=== PATIENT | female | born 1935 | race Caucasian/White ===

== ENCOUNTER 2019-01-24 20:25 | Inpatient (IN) | payer OTHER ==
[~2019-01-24] VITALS: Ht 165.1 cm; Wt 99.4 kg
[2019-01-24 20:29] VITALS: Ht 165.1 cm; Wt 99.4 kg
--- NOTE | 2019-01-24 20:32 | NUR ---
PT BIB AMBULANCE FROM [facility] FOR C/O OF A SUDDEN ONSET OF CHEST PAIN THAT STARTED APPROX 30MINS AGO. PER MEDICS THEY GAVE 2 0.4MG OF NITRO SL AND 324 MG OF ASPIRIN WITH NO RELIEF OF SYMPTOMS. PT STATES THAT PAIN IS SHARP, NON-RADIATING AND RATES IT A 9/10. PT ALSO REPORT SOB, PT LUNG SOUNDS CLEAR IN ALL FLORES WITH AUSCULTATION. PT IS ON A VOLUNTARY HOLD AT [facility] FOR BEING GRAVELY DISABLED. PT IS A/O X4. RESP ARE EQUAL AND UNLABORED. NO ACUTE DISTRESS NOTED. PT PLACED ON FULL PRODUCT TEST SPECIALIST.
[2019-01-24 21:44] LABS: BASOPHIL % 1.3 % (0-2); PLATELET COUNT 213 x10^3mcL (130-400); RED CELL DISTRIBUTION WIDTH 14.4 % (11.5-14.5)
[2019-01-24 21:49] LABS: CARBON DIOXIDE 25.2 mmol/L (21-32); CHLORIDE SERUM 107 mmol/L (98-107); CREATININE SERUM 1.1 mg/dL (0.6-1.0); GLUCOSE SERUM 89 mg/dL (74-106); POTASSIUM SERUM 4.1 mmol/L (3.5-5.1); SODIUM SERUM 143 mmol/L (136-145)
[2019-01-24 21:54] LABS: ALKALINE PHOSPHATASE 126 U/L (46-116); ALT/SGPT 14 U/L (14-59); AST/SGOT 12 U/L (15-37); BILIRUBIN TOTAL 0.2 mg/dL (0.20-1.00); TOTAL PROTEIN, SERUM 5.7 g/dL (6.4-8.2)
--- NOTE | 2019-01-24 22:19 | NUR ---
CALLED [facility] AND SPOKE TO PAYAL BAEZ WHO STATED THAT PT IS NO NOT A HOLD SHE WAS A VOLUNTARY ADMIT INTO [facility].
--- NOTE | 2019-01-24 22:47 | NUR ---
REPORT GIVEN ELSA RN TO ASSUME CARE OF PT.
[2019-01-24] MEDS ORDERED: PLA75 PO (23:07)
[2019-01-24] MEDS ORDERED: LIPI10 PO (23:07)
[2019-01-24] MEDS ORDERED: ARICEPT5 MG PO (23:07)
[2019-01-24] MEDS ORDERED: NOR5 PO (23:07)
[2019-01-24] MEDS ORDERED: CARVEDILOL3.125 M1 PO (23:08)
[2019-01-24] MEDS ORDERED: ASPIR 8181 MG PO (23:08)
[2019-01-24 23:31] VITALS: BP 141/57
--- NOTE | 2019-01-24 23:34 | NUR ---
RECEIVED PT FROM ED VIA DANII. ORIENTED PT TO ROOM AND SURROUNDINGS. IV NOTED TO PATENT AND INTACT. TELE 3 PLACED ON PT READING SBR. INSTRUCTED PT ON THE USE OF CALL LIGHT FOR ASSISTANCE. ENDORSED PT TO PRIMARY NURSE ELSA
[2019-01-24 23:36] LABS: MAGNESIUM 1.7 mg/dL (1.8-2.4)
[2019-01-24 23:37] LABS: CHOLESTEROL/HDL RATIO 2.5
[2019-01-24 23:45] LABS: FREE T4 1.04 ng/dL (0.76-1.46); FREE THYROXINE INDEX 2.6 ug/dL (1.4-4.5); T4(THYROXINE) 7.1 ug/dL (4.7-13.3)
--- NOTE | 2019-01-25 00:01 | NUR ---
RECIEVED PT FROM VANESSA RN IN NO ACUTE DISTRESS. AOX2. TELE #3, SB. BREATHING E/U. DENIES CP. C/O LINDSEY. IV TO , PATENT. ORIENTED TO ROOM. BED IN LOWEST POSITION, 2 SIDE RAILS UP, CALL LIGHT IN REACH. INSTRUCTED TO CALL FOR ASSISTANCE.
[2019-01-25 00:40] LABS: T3 TOTAL 0.85 ng/mL
--- NOTE | 2019-01-25 01:50 | NUR ---
RESTING IN BED WITH EYES CLOSED. BREATHING E/U. NO ACUTE DISTRESS NOTED. WILL CONTINUE TO MONITOR.
[2019-01-25 05:15] VITALS: BP 139/53
[2019-01-25 06:47] LABS: BASOPHIL % 1.2 % (0-2); PLATELET COUNT 208 x10^3mcL (130-400); RED CELL DISTRIBUTION WIDTH 14.5 % (11.5-14.5)
--- NOTE | 2019-01-25 06:47 | NUR ---
NO C/O CP OVERNIGHT. NO ACUTE CHANGES. WILL ENDORSE TO ONCOMING RN.
--- NOTE | 2019-01-25 07:01 | NUR ---
REPORT TAKEN FROM PROFESSOR OF LITERATURE NURSE AT THE BEDSIDE, PT RESTING BUT WOKE FOR REPORT. DENIED HEADACHE, BUT DID REPORT MILD CHEST PAIN. DENIED SOB, DIZZINESS, OR NAUSEA, ON TELE # 3 SR AT THIS TIME, WILL CONTINUE TO MONITOR.
[2019-01-25 07:06] LABS: CALCIUM 7.9 mg/dL (8.5-10.1); CARBON DIOXIDE 26.7 mmol/L (21-32); CHLORIDE SERUM 107 mmol/L (98-107); CREATININE SERUM 1.1 mg/dL (0.6-1.0); GLUCOSE SERUM 82 mg/dL (74-106); MAGNESIUM 1.8 mg/dL (1.8-2.4); PHOSPHOROUS 3.4 mg/dL (2.5-4.9); POTASSIUM SERUM 4.5 mmol/L (3.5-5.1); SODIUM SERUM 144 mmol/L (136-145)
--- NOTE | 2019-01-25 07:15 | NUR ---
CANCELLATION REQUESTED FOR ECHOCARDIOGRAM
--- NOTE | 2019-01-25 12:13 | NUR ---
PT REPORTS CHEST PAIN AT THIS TIME THAT RADIATES TO HER BACK, WELL NUMBNESS IN HER FINGERS. VITALS ASSESSED BP 129/49 (86), HR 55, O2 SAT 98 ON ROOM AIR. CARDIAC ECHO IN PROGRESS AT THIS.
--- NOTE | 2019-01-25 12:17 | NUR ---
I SPOKE TO DR. DALTON WHO REQUESTED AN EKG BE COMPLETED AT THIS TIME.
--- NOTE | 2019-01-25 12:24 | NUR ---
EKG ORDERED AND I SPOKE TO RT WHO CONFIMED THEY RECEVIED THE ORDER AND WILL COME TO COMPLETE. PT AWAKE ALERT AND ORIENTED, ABLE TO MAKE NEEDS KNOWN. WILL CONTINUE TO MONITOR.
--- NOTE | 2019-01-25 12:32 | NUR ---
VITALS RE-ASSESED AT THIS TIME, BP 128/59 (82), HR 54, O2 SAT 98 ON ROOM AIR. PT REPORTS NO CHANGE IN PAIN, STILL LOCATED IN LEFT CHEST AND RADIATES TO BACK, EKG PENDING, NO NEW ORDERS FROM DR. DALTON AT THIS TIME, WILL CONTINUE TO MONITOR.
--- NOTE | 2019-01-25 12:50 | NUR ---
EKG COMPLETED, PROVIDER PAGED.
[2019-01-25 13:12] VITALS: BP 147/72
[2019-01-25 16:59] VITALS: BP 131/52
[2019-01-25 17:52] LABS: microscopic required? NO
[2019-01-25 18:01] LABS: UA SPECIFIC GRAVITY <=1.005 (1.005-1.035); urine erythrocyte NEGATIVE (NEGATIVE)
[2019-01-25 18:13] LABS: AMPHETAMINE QUAL UR NONE DETECTED (See below)
--- NOTE | 2019-01-25 18:24 | NUR ---
PT TOLERATED TREATMENT WELL DURING THE SHIFT, REPORTS MILD CHEST DISCOMFORT AT THIS TIME, BUT DENIED ACUTE PAIN. ABLE TO REST AT THIS TIME. WILL REPORT TO MEDICAL OFFICE TECHNOLOGIST NURSE AND ENDORSE CARE CARE.
--- NOTE | 2019-01-25 19:10 | NUR ---
REPORT GIVEN TO GROUP ROOMS COORDINATOR NURSE, CARE ENDORSED
[2019-01-25 19:20] VITALS: BP 137/56
--- NOTE | 2019-01-25 20:21 | NUR ---
RECEIVED PT SITTING ON THE EDGE OF THE BED AAOX3 , DENY CHEST PAIN AT THE MOMENT , ON TELE NUMBER 3 THAT SHOWS NSR HR 78 . LUNG SOUNDS CTA , ABD SOFT BS ACTIVE , PIV INTACT INFUSING WELL . CALL LIGHT WITHIN PT'S REACH , WILL CON'T TO MONITOR PT CLOSELY.
--- NOTE | 2019-01-26 04:08 | NUR ---
I HAVE REVIEWED THE DATA COLLECTION BY LEAD [employer]ESS[employer] (NAME):LIU JOSEPH ENTERED ON (DATE/TIME): I CONCUR WITH THE DATA AND ANY EXCEPTIONS OR COMMENTS ARE LISTED BELOW:
[2019-01-26 04:44] VITALS: BP 140/59
--- NOTE | 2019-01-26 04:58 | NUR ---
PT;S IN BED WITH EYES CLOSED , TELE NSR . PIV INTACT INFUSING WELL .
--- NOTE | 2019-01-26 06:27 | NUR ---
NO CHANGES OF CONDITION NOTED, ALL DUE MEDS GIVEN NO REACTION NOTED, PIV INTACT INFUSING WELL , PT'S IN BED DENY CHEST PAIN AT THE MOMENT , TELE NSR
[2019-01-26 07:01] LABS: BASOPHIL % 1.4 % (0-2); PLATELET COUNT 205 x10^3mcL (130-400); RED CELL DISTRIBUTION WIDTH 14.4 % (11.5-14.5)
[2019-01-26 07:13] LABS: CALCIUM 8.2 mg/dL (8.5-10.1); CARBON DIOXIDE 27.2 mmol/L (21-32); CHLORIDE SERUM 109 mmol/L (98-107); GLUCOSE SERUM 84 mg/dL (74-106); POTASSIUM SERUM 4.1 mmol/L (3.5-5.1); SODIUM SERUM 146 mmol/L (136-145)
--- NOTE | 2019-01-26 07:27 | NUR ---
ASSUMED CARE OF PATIENT. ALERT AND AWAKE THIS MORNING. A&OX2 TO PERSON AND PLACE. NO COMPLAINTS OF PAIN OR DISCOMFORT. NO APPARENT DISTRESS NOTED. IV TO LEFT HAND PATENT AND INFUSING NS AT 70ML/HR. WILL CONTINUE TO MONITOR.
[2019-01-26 08:43] VITALS: BP 108/51
--- NOTE | 2019-01-26 09:15 | NUR ---
PATIENT RESTING IN BED WITH NO COMPLAINTS OF PAIN OR DISCOMFORT. NO APPARENT DISTRESS NOTED. ENDORSING BM THIS MORNING.
--- NOTE | 2019-01-26 11:28 | NUR ---
PATIENT SEEN RESTING IN BED WITH NO COMPLAINTS OF PAIN OR DISCOMFORT. NO APPARENT DISTRESS NOTED. NO NEW ISSUES.
[2019-01-26 11:46] VITALS: BP 129/39
--- NOTE | 2019-01-26 14:27 | NUR ---
PATIENT SEEN IN ROOM WITH NO COMPLAINTS OF PAIN OR DISCOMFORT. NO APPARENT DISTRESS NOTED. NO NEW ISSUES.
--- NOTE | 2019-01-26 14:46 | NUR ---
CONTACTED SISTER KORY FOR POSSIBLE PICKUP FOR DISCHARGE. SISTER STATES SHE IS NOT COMFORTABLE WITH TAKING SISTER BACK, STATES WHENEVER SISTER COMES BACK HOME SHE LEAVES HER PLACE STATING SHE DOES NOT WANT TO BE THERE. PATIENT GOES MISSING FOR THESE PERIODS OF TIME AND SISTER IS UNAWARE OF WHAT SHE HAS BEEN DOING FOR THE PAST 2 WEEKS. OLMAN FINK NOTIFIED.
--- NOTE | 2019-01-26 15:00 | NUR ---
PATIENT AN UNRELIABLE HISTORIAN. UNABLE TO NAME CURRENT HOSPITAL, UNABLE TO RECALL PRIOR VOLUNTAROY ADMISSION TO [facility], UNABLE TO RECALL WHERE SHE WAS STAYING PRIOR TO [facility]. WHEN ASKED ABOUT HOME SITUATION WITH SISTER, STATES PATIENT WAS THE ONE TAKING CARE OF THE SISTER AND DID NOT WANT TO LIVE THERE. PATIENT ALSO STATES SHE CAME FROM A PLACE WITH LOTS OF PEOPLE HER AGE, UNABLE TO RECALL FACILITY NAME.
--- NOTE | 2019-01-26 15:32 | NUR ---
CALL FROM [facility] AT [facility], STATES THEY HAVE PATIENTS BELONGINGS AND WILL SEND IT OVER TO THE FACILITY. ALSO STATES THE ONLY INFORMATION THEY HAVE REGARDING THE PATIENT IS THE SISTER'S PHONE NUMBER.
--- NOTE | 2019-01-26 16:38 | NUR ---
PATIENTS BELONGINGS RETURNED FROM [facility]
--- NOTE | 2019-01-26 16:40 | NUR ---
UPDATED [facility] PE[facility]ERO OF PATIENT STATUS FOR DISCHARGE
[2019-01-26 16:56] VITALS: BP 141/100
--- NOTE | 2019-01-26 17:45 | NUR ---
REPORT GIVEN TO [facility] ADMISSIONS WITH APPROVAL FROM [facility] FROM [facility]. [facility] WAITING FOR [phone] IN FAX.
--- NOTE | 2019-01-26 18:57 | NUR ---
PATIENT SEEN IN BED WITH NO COMPLAINTS OF PAIN OR DISCOMFORT. NO APPARENT DISTRESS NOTED. IV TO LEFT HAND PATENT AND INFUSING NS AT 70ML/HR. WILL ENDORSE CARE TO ONCOMING RN.
--- NOTE | 2019-01-26 19:30 | NUR ---
RECIEVED PATIENT AT START OF SHIFT A/O X3. ON TELE 3 NSR 68. PATIENT REPORTING 8/10 CHEST PAIN RADIATING TO LEFT SHOULDER. WILL NOTIFY MD. NO EDEMA NOTED. NO SOB ON RA. IV TO LH INFUSING WITHOUT ERYTHEMA OR INFILTRATION. BED LOCKED AND IN LOWEST POSITION. CALL LIGHT WITHIN REACH.
--- NOTE | 2019-01-26 20:00 | NUR ---
DR. BATRES NOTIFIED OF PATIENT'S CHEST PAIN. TROPONIN IS NEG, TELE MONITOR IS NSR. TORADOL ORDERED PER EMAR. WILL ADMINISTER WHEN VERIFIED BY PHARMACY.
[2019-01-26 20:44] VITALS: BP 154/76
--- NOTE | 2019-01-26 20:48 | NUR ---
TORADOL GIVEN PER EMAR FOR REPORT OF 8/10 CHEST PAIN AT THIS TIME.
--- NOTE | 2019-01-26 21:36 | NUR ---
PATIENT REPORTS COMPLETE RELIEF OF CHEST PAIN, 0/10.
--- NOTE | 2019-01-27 01:05 | NUR ---
PATIENT'S EYES ARE CLOSED, BREATHS EVEN AND REGUALR. TELE NSR 63. IV INFUSING WITHOUT ERYTHEMA OR INFILTRATION. BED LOCKED AND IN LOWEST POSIITON. CALL LIGHT WITHIN REACH.
[2019-01-27 05:08] VITALS: BP 144/75
--- NOTE | 2019-01-27 06:04 | NUR ---
PATIENT IS SNORING, BREATHS EVEN AND REGUALR. IV INFUSING WITHOUT ERYTHEMA OR INFILTRATION. NO FURTHER SIGNIFICANT EVENTS THIS SHIFT.CALL LIGHT WITHIN REACH. WILL ENDORSE CARE TO DAYSHIFT NURSE.
--- NOTE | 2019-01-27 07:25 | NUR ---
RECEIVED PT FROM LATIN DANCER. PT AWAKE, ALERT A/OX2-3 WITH FORGETFULNESS. PT ON ROOM AIR WITH NO RESP DISTRESS NOTED. PT ON TELE 3, DENIES CHEST PAIN AT THIS TIME. IV ACCESS LH CDI, INFUSING NS AT 70ML/HR. PERIPHERAL PULSES PALPABLE, NO EDEMA NOTED. PT AMBULATORY. PT REPORTS LAST BM 2 DAYS AGO. ACTIVE BS NOTED. DENIES ABDOMINAL PAIN. PT NOTED TO HAVE GENERALIZED WEAKNESS. PT REFUSES TO WEAR NONSKID SOCKS AT THIS TIME. STATES HER "FEET ARE HOT". ALL OTHER SAFETY MEASURES IN PLACE, BED LOW AND LOCKED. CALL LIGHT WITHIN REACH.
[2019-01-27 07:49] VITALS: BP 146/66
--- NOTE | 2019-01-27 11:15 | NUR ---
PT ASLEEP AT THIS TIME WITH NO ACUTE DISTRESS NOTED.
[2019-01-27 11:54] VITALS: BP 146/54
--- NOTE | 2019-01-27 15:17 | NUR ---
PT AWAKE AT THIS TIME WITH NO ACUTE DISTRESS OR DISCOMFORT NOTED. PT DENIES ANY PAIN AT THIS TIME. ALL NEEDS MET. SAFETY MAINTAINED.
[2019-01-27 16:28] VITALS: BP 146/54
--- NOTE | 2019-01-27 16:50 | NUR ---
PT DISCHARGE INSTRCTIONS/EDUCATION PROVIDED TO PATIENT ADN IN DISCHARGE PACKET. PT VERBALIZED UNDERSTANDING. IV ACCESS REMOVED WITH CATHETER INTACT. NO BLEEDING OR SWELLING NOTED. TRANSPORTATION EST ARRIVAL BETWEEN [phone]. NO ACUTE DISTRESS OR DISCOMFORT AT THIS TIME. SAFETY MAINTAINED.
[2019-01-27 17:12] VITALS: BP 139/67
== END 2019-01-27 17:25 | disposition left against medical advice (07) | DRG 205 ==
LOC: ED 20:25 → DU 22:35 → MU 01-27 15:48
PROVIDERS: Emergency Medicine; ADMIT General Practice
DX: M94.0 Chondrocostal junction syndrome [Tietze] (principal); N17.0 Acute kidney failure with tubular necrosis; E44.0 Moderate protein-calorie malnutrition; E83.42 Hypomagnesemia; E66.9 Obesity, unspecified; E02 Subclinical iodine-deficiency hypothyroidism; I10 Essential (primary) hypertension; G30.9 Alzheimer's disease, unspecified; F02.80 Dementia in other diseases classified elsewhere, unspecified severity, without behavioral disturbance, psychotic disturbance, mood disturbance, and anxiety; I25.10 Atherosclerotic heart disease of native coronary artery without angina pectoris; M19.90 Unspecified osteoarthritis, unspecified site; J44.9 Chronic obstructive pulmonary disease, unspecified; I25.2 Old myocardial infarction; Z68.32 Body mass index [BMI] 32.0-32.9, adult
CPT/HCPCS: 83880; 84439; G0378; J1885; J2270; J2405; J7030; Q0092